=== PATIENT | female | born 1985 | race Caucasian/White ===

== ENCOUNTER 2016-04-04 04:23 | Emergency (ER) | payer OTHER ==
[~2016-04-04] VITALS: Ht 165.1 cm; Wt 69.9 kg
[~2016-04-04 04:23] MED LIST: CIPR-9 PO
[2016-04-04 04:36] VITALS: BP 132/66; PULSE 75; RESP 16; TEMP 97.7; O2SAT 98
--- NOTE | 2016-04-04 05:19 | RADHPO ---
EXAM DATE/TIME: 04/04/2016 04:53 [place] COMPARISON: No previous studies available for comparison. INDICATIONS : Cough and congestion. MEDICAL HISTORY : None. SURGICAL HISTORY : None. ENCOUNTER: Initial ACUITY: 1 month PAIN SCORE: 0/10 LOCATION: Bilateral chest FINDINGS: PA and lateral views of the chest demonstrate the lungs to be symmetrically aerated without evidence of mass, infiltrate or effusion. The cardiomediastinal contours are unremarkable. Osseous structure s are intact. CONCLUSION: 1. No acute cardiopulmonary disease. Henrry Julien MD on April 04, 2016 at 5:18 Board Certified Radiologist. This report was verified electronically.
[2016-04-04] MEDS ORDERED: ZITH500T PO (06:10)
[2016-04-04] MEDS ORDERED: PRED50 PO (06:10)
--- NOTE | 2016-04-04 06:11 | PD ---
HPI Chief Complaint: ENT Complaint Time Seen by Provider: 05:47 Travel History International Travel<30 days: No Contact w/Intl Traveler<30days: No Traveled to known affect area: No History of Present Illness HPI The patient is a 30-year-old female that complains of a cough productive of clear/white mucus for 4 weeks. She also complains of a sore throat for 3 days. She smokes one fourth pack a day. She denies any fever or history of asthma. PFSH Past Medical History Medical History: Denies Significant Hx Diminished Hearing: No ?: Not LMP: 04/01/16 : 1 Para: 1 Miscarriage: 0 : 0 Past Surgical History Section: Yes (06/26/13) Social History Alcohol Use: Yes (rarely) Tobacco Use: Yes (02/21 ppd) Substance Use: No Allergies-Medications (Allergen,Severity, Reaction): Coded Allergies: Vancomycin (Verified Allergy, Severe, STOP BREATHING, 04/04/16) Clindamycin (Verified Allergy, Intermediate, 04/04/16) *MDRO Multi-Drug Resistant Organism (Verified Adverse Reaction, Unknown, ) MRSA (arm)-08/19/15 Reported Meds & Prescriptions Reported Meds & Active Scripts Active Zithromax (Azithromycin) 500 Mg Tab 500 Mg PO DAILY 5 Days Prednisone 50 Mg Tab 50 Mg PO BID Cipro (Ciprofloxacin HCl) 500 Mg Tab 500 Mg PO BID Review of Systems Except as stated in HPI: all other systems reviewed are Neg Physical Exam Narrative GENERAL: Well-nourished, well-developed patient in no respiratory distress. Her vital signs are normal. SKIN: Warm and dry. HEAD: Normocephalic. EYES: No scleral icterus. No injection or drainage. NECK: Supple, trachea midline. No JVD or lymphadenopathy. CARDIOVASCULAR: Regular rate and rhythm without murmurs, gallops, or rubs. RESPIRATORY: Breath sounds equal bilaterally. No accessory muscle use. Lungs show a few very widely scattered wheezes but at the right base there are some rhonchi along with the wheezes. GASTROINTESTINAL: Abdomen soft, non-tender, nondistended. MUSCULOSKELETAL: No cyanosis, or edema. BACK: Nontender without obvious deformity. No CVA tenderness. ENT: The tympanic membranes are clear and the throat shows only minimal erythema. There is no exudate or abscess present in the throat. No sinus tenderness is present. Data Data Last Documented VS Vital Signs Date Time Temp Pulse Resp B/P Pulse Ox O2 Delivery O2 Flow Rate FiO2 04/04/16 04:36 97.7 75 16 132/66 98 Orders Group A Rapid Strep Screen (04/04/16 04:48) Chest, Pa & Lat (04/04/16 ) Strep Culture (Group A) (04/04/16 04:50) Prednisone (Deltasone) (04/04/16 06:15) Azithromycin (Zithromax) (04/04/16 06:15) MDM Medical Decision Making Medical Screen Exam Complete: Yes Emergency Medical Condition: Yes Medical Record Reviewed: Yes Interpretation(s) The chest x-ray shows no acute cardiopulmonary disease. The strep screen is negative for group A strep antigen. Differential Diagnosis COPD with acute exacerbation, pneumonia, bronchitis, viral syndrome, strep pharyngitis, viral pharyngitis Narrative Course The patient has bronchitis. It is now going on for 4 weeks. Plan: She needs to discontinue smoking and is given a course of Zithromax. She should follow- up with a primary care physician. She should also increase her liquid intake. Diagnosis Primary Impression: Bronchitis with bronchospasm Additional Instructions: The prednisone is taken one tablet twice daily for 4 days followed by one tablet once daily for 4 days. The Zithromax is one tablet daily for 5 days. Follow-up with a primary care physician next week. Med/Other Pt SpecificInfo: Prescription(s) given Scripts Azithromycin (Zithromax)500 Mg Oab528 Mg PO DAILY 5 Days Ref 0 Prov:Edgar Dumont MD 04/04/16 Prednisone 50 Mg Tab50 Mg PO BID #12 TAB Ref 0 Prov:Edgar Dumont MD 04/04/16 Disposition: 01 DISCHARGE HOME Condition: Stable Edgar Dumont MD Apr 04, 2016 06:11
[2016-04-04] MEDS ORDERED: predniSONE 20 MG TAB PO ONE (06:15)
[2016-04-04] MEDS ORDERED: AZITHROMYCIN 250 MG TAB PO ONE (06:15)
== END 2016-04-04 06:39 | disposition home or self-care (01) ==
LOC: PHEFT 04:23
DX: J40 Bronchitis, not specified as acute or chronic (principal); J98.01 Acute bronchospasm; F17.210 Nicotine dependence, cigarettes, uncomplicated
CPT/HCPCS: 71020; 87081; 87880; 99283; J7512

== ENCOUNTER 2016-05-10 09:09 | Emergency (ER) | payer OTHER ==
[~2016-05-10] VITALS: Ht 167.6 cm; Wt 69.0 kg
[~2016-05-10 09:09] MED LIST changes: +PRED50 PO; +ZITH500T PO
[2016-05-10 09:15] VITALS: BP 124/97; PULSE 120; RESP 16; TEMP 99; O2SAT 100
--- NOTE | 2016-05-10 09:27 | PD ---
HPI Chief Complaint: cough/yeast infection Time Seen by Provider: 09:20 Travel History International Travel<30 days: No Contact w/Intl Traveler<30days: No Traveled to known affect area: No History of Present Illness HPI 30-year-old female here for evaluation of possible vaginal yeast infection as well as a cough. Patient reports whitish vaginal discharge with vaginal itching 2 days. She has been trying to use Monistat without relief of symptoms. She is sexually active with her boyfriend. No vaginal bleeding. She is having some dysuria that started today. Patient also reports having a cough for about the last 4 months. She was on a Z-Sotero about a month ago. She smokes about a pack of cigarettes daily. Cough is productive of greenish/ yellowish sputum. No hemoptysis. No fevers. No abdominal pains. LMP was about a week and a half ago. PFSH Past Medical History Diminished Hearing: No : 1 Para: 1 Miscarriage: 0 : 0 Past Surgical History Section: Yes (06/26/13) Social History Alcohol Use: Yes (rarely) Tobacco Use: Yes (02/21 ppd) Substance Use: No Allergies-Medications (Allergen,Severity, Reaction): Coded Allergies: Vancomycin (Verified Allergy, Severe, STOP BREATHING, 04/04/16) Clindamycin (Verified Allergy, Intermediate, 04/04/16) *MDRO Multi-Drug Resistant Organism (Verified Adverse Reaction, Unknown, ) MRSA (arm)-08/19/15 Reported Meds & Prescriptions Reported Meds & Active Scripts Active Zithromax (Azithromycin) 500 Mg Tab 500 Mg PO DAILY 5 Days Prednisone 50 Mg Tab 50 Mg PO BID Cipro (Ciprofloxacin HCl) 500 Mg Tab 500 Mg PO BID Review of Systems Except as stated in HPI: all other systems reviewed are Neg Physical Exam Narrative GENERAL: Well-developed, well-nourished, comfortable, no acute distress. SKIN: Warm and dry. HEAD: Atraumatic. Normocephalic. EYES: Pupils equal and round. No scleral icterus. No injection or drainage. ENT: Mucous membranes pink and moist. CARDIOVASCULAR: Regular rate and rhythm. RESPIRATORY: No accessory muscle use. Clear to auscultation. Breath sounds equal bilaterally. GASTROINTESTINAL: Abdomen soft, non-tender, nondistended. BULB GROWER: Exam performed in the presence of a female nurse. External genitalia with mild erythema/irritation, no vesicular lesions. Moderate amount of white yellowish/[id number] vaginal discharge in vaginal vault. Normal cervix. No CMT. No adnexal masses or tenderness. MUSCULOSKELETAL: No obvious deformities. No clubbing. No cyanosis. No edema. NEUROLOGICAL: Awake and alert. No obvious cranial nerve deficits. Motor grossly within normal limits. Normal speech. PSYCHIATRIC: Appropriate mood and affect; insight and judgment normal. Data Data Last Documented VS Vital Signs Date Time Temp Pulse Resp B/P Pulse Ox O2 Delivery O2 Flow Rate FiO2 05/10/16 09:15 99.0 120 16 124/97 100 Orders Gc And Chlamydia Pcr (05/10/16 09:25) Wet Prep Profile (05/10/16 09:25) Urinalysis - C+S If Indicated (05/10/16 09:25) Ed Urine Pregnancytest Poc (05/10/16 09:25) Labs Laboratory Tests Test 05/10/16 05/10/16 09:36 09:44 Urine Collection Type CLEAN CATCH Urine Color YELLOW Urine Turbidity SLIGHTY CLOUDY Urine pH 7.0 Urine Specific [place] 1.015 Urine Protein NEG mg/dL Urine Glucose (UA) NEG mg/dL Urine Ketones NEG mg/dL Urine Occult Blood NEG Urine Nitrite NEG Urine Bilirubin NEG Urine Leukocyte Esterase TRACE Urine WBC 0-2 /hpf Urine Squamous Epithelial 0-5 /hpf Cells Urine Amorphous Sediment FEW Microscopic Urinalysis Comment CULT NOT INDICATED Clue Cells (Wet Prep) NONE SEEN Vaginal Trichomonas (Wet Prep) NONE SEEN Vaginal Yeast (Wet Prep) NONE SEEN MDM Medical Decision Making Medical Screen Exam Complete: Yes Emergency Medical Condition: Yes Medical Record Reviewed: Yes Differential Diagnosis Bronchitis, pneumonia, vulvovaginal candidiasis, PID, gonorrhea, chlamydia, UTI , cystitis Narrative Course Vital signs reviewed. Initial heart rate was 120 which improved to 83 without any intervention. Wet prep is negative for yeast, negative for clue cells, negative for Trichomonas. UA is not suggestive of UTI. Urine test is negative. Physical exam is not consistent with PID. Even though her wet prep is negative for yeast, her physical exam is consistent with yeast infection. The patient has been applying Monistat. I will give her a dose of Diflucan here in the emergency department as well as a prescription for another dose in 72 hours. She will be started on Levaquin for her persistent cough/bronchitis. She is stable for discharge home with outpatient follow-up with an HEATER MECHANIC doctor this week. She was informed on when to return to the emergency department pitcher verbalizes understanding and agreement with plan. Diagnosis Primary Impression: Vulvovaginal candidiasis Additional Impression: Bronchitis Referrals: Primary Care Physician 3 days Additional Instructions: Follow-up with a primary care physician this week. Follow-up with an HEATER MECHANIC doctor this week. Return to the emergency department for worsening symptoms or any other concerns. Scripts Fluconazole (Diflucan)150 Mg Qbw580 Mg PO ONCE #1 TAB Ref 0 Prov:Chase Caraballo MD 05/10/16 Levofloxacin (Levaquin)500 Mg Joi640 Mg PO DAILY 7 Days Ref 0 Prov:Chase Caraballo MD 05/10/16 Disposition: 01 DISCHARGE HOME Condition: Stable Chase Caraballo MD May 10, 2016 09:27
[2016-05-10 09:43] LABS: BLOOD, URINE NEG (NEG); GLUCOSE,URINE NEG (NEG); KETONE, URINE NEG (NEG); NITRITE,URINE NEG (NEG)
[2016-05-10 09:44] LABS: METHOD OF COLLECTION CLEAN CATCH; URINE COLOR YELLOW (YELLW/STRAW)
[2016-05-10 09:48] LABS: COMMENT (UR) CULT NOT INDICATED; CULTURE IF INDICATED CULT NOT INDICATED; SQUAMOUS EPITHELIAL CELL URINE 0-5 /hpf (0-5); WBC, URINE 0-2 /hpf (0-5)
[2016-05-10 09:57] VITALS: O2SAT 83
[2016-05-10] MEDS ORDERED: LEVA500T PO (09:59)
[2016-05-10] MEDS ORDERED: DIFL150T PO (09:59)
[2016-05-10] MEDS ORDERED: FLUCONAZOLE 100 MG TAB PO ONE (10:00)
[2016-05-10 15:05] LABS: CHLAMYDIA PCR NOT DETECTED (NOT DETECT); NEISSERIA PCR NOT DETECTED (NOT DETECT)
== END 2016-05-10 10:16 | disposition home or self-care (01) ==
LOC: PHED 09:09
DX: B37.3 Candidiasis of vulva and vagina (principal); R05 Cough; J40 Bronchitis, not specified as acute or chronic; F17.210 Nicotine dependence, cigarettes, uncomplicated
CPT/HCPCS: 81001; 84703; 87210; 87491; 87591; 99283

== ENCOUNTER 2016-07-02 05:49 | Emergency (ER) | payer OTHER ==
[~2016-07-02] VITALS: Ht 167.6 cm; Wt 66.9 kg
[~2016-07-02 05:49] MED LIST changes: -CIPR-9 PO; +DIFL150T PO; +LEVA500T PO; -PRED50 PO; -ZITH500T PO
[2016-07-02 05:56] VITALS: BP 108/68; PULSE 77; RESP 16; TEMP 98; O2SAT 99
[2016-07-02] MEDS ORDERED: NORG0.253 PO (06:21)
[2016-07-02 06:29] LABS: GLUCOSE,URINE NEG (NEG); KETONE, URINE NEG (NEG); NITRITE,URINE NEG (NEG)
[2016-07-02] MEDS ORDERED: NITROFURANTOIN MONOHYD MACROCR 100 MG CAP PO ONE (06:30)
[2016-07-02] MEDS ORDERED: MACR100C2 PO (06:30)
[2016-07-02] MEDS ORDERED: PROM25TA5 PO (06:30)
--- NOTE | 2016-07-02 06:35 | PD ---
HPI Chief Complaint: Complaint Time Seen by Provider: 06:00 Travel History International Travel<30 days: No Contact w/Intl Traveler<30days: No Traveled to known affect area: No History of Present Illness HPI The patient is a 30-year-old female that complains of dysuria, frequency and urgency for 3 days. She denies any fever but does have some nausea. She denies any vomiting. She states there is no possibility of . She denies any flank pain. PFSH Past Medical History Diminished Hearing: No ?: Not LMP: 2 WEEKS AGO : 1 Para: 1 Miscarriage: 0 : 0 Past Surgical History Section: Yes (06/26/13) Social History Alcohol Use: Yes (rarely) Tobacco Use: Yes (02/21 ppd) Substance Use: No Allergies-Medications (Allergen,Severity, Reaction): Coded Allergies: Vancomycin (Verified Allergy, Severe, STOP BREATHING, 07/02/16) Clindamycin (Verified Allergy, Intermediate, 07/02/16) *MDRO Multi-Drug Resistant Organism (Verified Adverse Reaction, Unknown, ) MRSA (arm)-08/19/15 Reported Meds & Prescriptions Reported Meds & Active Scripts Active Reported Estarylla (Norgestimate-Ethinyl Estradiol) 0.25-35 Mg-Mcg Tab 1 Tab PO DAILY Review of Systems Except as stated in HPI: all other systems reviewed are Neg Physical Exam Narrative GENERAL: The patient is alert, oriented 3 and slight apparent distress with her suprapubic discomfort. Her vital signs are normal. SKIN: Focused skin assessment warm/dry. HEAD: Atraumatic. Normocephalic. EYES: Pupils equal and round. No scleral icterus. No injection or drainage. ENT: No nasal bleeding or discharge. Mucous membranes pink and moist. NECK: Trachea midline. No JVD. CARDIOVASCULAR: Regular rate and rhythm. No murmur appreciated. RESPIRATORY: No accessory muscle use. Clear to auscultation. Breath sounds equal bilaterally. GASTROINTESTINAL: Abdomen soft, non-tender, nondistended. Hepatic and splenic margins not palpable. MUSCULOSKELETAL: No obvious deformities. No clubbing. No cyanosis. No edema. NEUROLOGICAL: Awake and alert. No obvious cranial nerve deficits. Motor grossly within normal limits. Normal speech. PSYCHIATRIC: Appropriate mood and affect; insight and judgment normal. Data Data Last Documented VS Vital Signs Date Time Temp Pulse Resp B/P Pulse Ox O2 Delivery O2 Flow Rate FiO2 07/02/16 05:56 98.0 77 16 108/68 99 Room Air Orders Urinalysis - C+S If Indicated (07/02/16 06:00) Ed Urine Pregnancytest Poc (07/02/16 06:13) Nitrofurantoin Monohyd Macrocr (Macrobid (07/02/16 06:30) MDM Medical Decision Making Medical Screen Exam Complete: Yes Emergency Medical Condition: Yes Medical Record Reviewed: Yes Differential Diagnosis Cystitis, pyelonephritis, herpes genitalis-unlikely Narrative Course The patient appears to have cystitis. She is given Macrobid for 10 days. The fact that she has some nausea indicates she should increase her liquid intake and establish a good urine flow through her kidneys to avoid a pyelonephritis. Diagnosis Primary Impression: Cystitis Additional Instructions: Increase your liquid intake to establish a good urine flow through your kidneys. In this way you may avoid the infection spreading to your kidneys and making very sick. Follow-up this week with your primary care physician. Med/Other Pt SpecificInfo: Prescription(s) given Scripts Nitrofurantoin Monohydrate Macrocrystals (Macrobid)100 Mg Bfw490 Mg PO BID 10 Days Ref 0 Prov:Edgar Dumont MD 07/02/16 Promethazine (Phenergan)25 Mg Tab25 Mg PO Q6H PRN (Nausea/Vomiting) #20 TAB Ref 0 Prov:Edgar Dumont MD 07/02/16 Disposition: 01 DISCHARGE HOME Condition: Stable Edgar Dumont MD July 02, 2016 06:35
[2016-07-02 06:45] LABS: BLOOD, URINE MOD (NEG)
[2016-07-02 06:49] LABS: URINE COLOR YELLOW (YELLW/STRAW)
[2016-07-02 06:51] LABS: MUCUS URINE OCC /lpf (OCC); WBC, URINE INNUM /hpf (0-5)
[2016-07-02 06:52] LABS: SQUAMOUS EPITHELIAL CELL URINE 0-5 /hpf (0-5)
[2016-07-02 06:55] LABS: COMMENT (UR) CULTURE INDICATED; CULTURE IF INDICATED CULTURE INDICATED
== END 2016-07-02 06:41 | disposition home or self-care (01) ==
LOC: PHED 05:49
DX: N30.90 Cystitis, unspecified without hematuria (principal); R11.0 Nausea; F17.200 Nicotine dependence, unspecified, uncomplicated
CPT/HCPCS: 81001; 84703; 87077; 87086; 87186; 99283

== ENCOUNTER 2016-08-14 17:04 | Emergency (ER) | payer OTHER ==
[~2016-08-14] VITALS: Ht 165.1 cm; Wt 70.0 kg
[~2016-08-14 17:04] MED LIST changes: -DIFL150T PO; -LEVA500T PO; +MACR100C2 PO; +NORG0.253 PO; +PROM25TA5 PO
[2016-08-14 17:09] VITALS: BP 132/87; PULSE 84; RESP 16; TEMP 98.6; O2SAT 96
[2016-08-14] MEDS ORDERED: CEPH-460 PO (17:46)
--- NOTE | 2016-08-14 17:48 | PD ---
HPI Chief Complaint: Foreign Body Time Seen by Provider: 17:25 Travel History International Travel<30 days: No Contact w/Intl Traveler<30days: No Traveled to known affect area: No History of Present Illness HPI 30-year-old female [facility] emergency department with chief complaint of fishhook stuck in right index finger. Injury occurred prior to arrival. Patient reports pain at the site. Aggravated by movement of the finger movement of the fishing lower. Severity 8 out of 10. She denies numbness or tingling extremity. Tetanus status up-to-date. [facility] Past Medical History Medical History: Denies Significant Hx Diminished Hearing: No Tetanus Vaccination: < 5 Years Influenza Vaccination: No ?: Not LMP: "4 weeks ago tomorrow" : 2 Para: 2 Miscarriage: 0 : 0 Past Surgical History Section: Yes (X's 2) Social History Alcohol Use: Yes (Occ.) Tobacco Use: Yes (1/2 PPD) Substance Use: No Allergies-Medications (Allergen,Severity, Reaction): Coded Allergies: Clindamycin (Verified Allergy, Severe, Respiratory arrest, 08/14/16) Vancomycin (Verified Allergy, Severe, Respiratory arrest, 08/14/16) *MDRO Multi-Drug Resistant Organism (Verified Adverse Reaction, Unknown, ) MRSA (arm)-08/19/15 Reported Meds & Prescriptions Reported Meds & Active Scripts Active No Active Prescriptions or Reported Medications Review of Systems Except as stated in HPI: all other systems reviewed are Neg Physical Exam Narrative GENERAL: Well-nourished, well-developed patient. Crying. SKIN: Focused skin assessment warm/dry. HEAD: Normocephalic. EYES: No scleral icterus. No injection or drainage. NECK: Supple, trachea midline. No JVD or lymphadenopathy. MUSCULOSKELETAL: No cyanosis, or edema. Right hand: [place]et[place] of fishhook embedded in within proximal aspect of right index finger palmar aspect. The digit is neurovascularly intact. Data Data Last Documented VS Vital Signs Date Time Temp Pulse Resp B/P Pulse Ox O2 Delivery O2 Flow Rate FiO2 08/14/16 17:09 98.6 84 16 132/87 96 MDM Medical Decision Making Medical Screen Exam Complete: Yes Emergency Medical Condition: Yes Differential Diagnosis Puncture wound caused by fishhook right index finger, fishhook removal Narrative Course 30-year-old female since emergency Department with fishing lower embedded within the right index finger. The digit is neurovascular intact. Digital block performed. [place] removed with push through method. Patient tolerated procedure well. Patient we put on prophylactic antibiotics instructed to follow -up with her primary care physician. Return precautions discussed. Patient verbalizes understanding Diagnosis Primary Impression: [place] injury to finger Qualified Code: S69.91XA - [place] injury to finger, right, initial encounter Referrals: Primary Care Physician Additional Instructions: Take the antibiotics as prescribed. Watch for signs of infection such as increased pain, redness, swelling, drainage from the site. If he developed the symptoms he needs to return to the emergency department. Take Tylenol or Motrin as needed for pain. Scripts Cephalexin (Keflex)500 Mg [id number] Mg PO Q6H #28 CAP Prov:Azra Lambert 08/14/16 Disposition: 01 DISCHARGE HOME Condition: Stable Azra Lambert Aug 14, 2016 17:48
== END 2016-08-14 17:55 | disposition home or self-care (01) ==
LOC: PHEFT 17:04
DX: S61.240A Puncture wound with foreign body of right index finger without damage to nail, initial encounter (principal); F17.210 Nicotine dependence, cigarettes, uncomplicated; W45.8XXA Other foreign body or object entering through skin, initial encounter; W22.8XXA Striking against or struck by other objects, initial encounter; Y93.9 Activity, unspecified; Y92.9 Unspecified place or not applicable
CPT/HCPCS: 99283

== ENCOUNTER 2016-10-17 03:35 | Emergency (ER) | payer OTHER ==
[~2016-10-17] VITALS: Ht 167.6 cm; Wt 69.6 kg
[~2016-10-17 03:35] MED LIST changes: +CEPH-460 PO; -MACR100C2 PO; -NORG0.253 PO; -PROM25TA5 PO
[2016-10-17 03:36] VITALS: BP 143/69; PULSE 101; RESP 16; TEMP 97.3; O2SAT 98
[2016-10-17] MEDS ORDERED: NORG0.253 PO (03:56)
[2016-10-17] MEDS ORDERED: IBUP800T23 PO (03:56)
[2016-10-17] MEDS ORDERED: DOXY100C PO (04:41)
[2016-10-17] MEDS ORDERED: BACT800T5 PO (04:41)
--- NOTE | 2016-10-17 04:42 | PD ---
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 Both lower labia show friction areas where the skin is broken and both lower labia show evidence of infection. The patient denies any fever. PFSH Past Medical History Medical History: Denies Significant Hx Diminished Hearing: No Tetanus Vaccination: < 5 Years Influenza Vaccination: No ?: Not LMP: 10/14/2016 : 2 Para: 2 Miscarriage: 0 : 0 Past Surgical History Section: Yes (X's 2) Gynecologic Surgery: Yes (2 c-sections) Social History Alcohol Use: Yes (Occ.) Tobacco Use: Yes (5 cigarettes/daily) Substance Use: No Allergies-Medications (Allergen,Severity, Reaction): Coded Allergies: clindamycin (Verified Allergy, Severe, Respiratory arrest, 10/17/16) vancomycin (Verified Allergy, Severe, Respiratory arrest, 10/17/16) *MDRO Multi-Drug Resistant Organism (Verified Adverse Reaction, Unknown, ) MRSA (arm)-08/19/15 Reported Meds & Prescriptions Reported Meds & Active Scripts Active Reported Estarylla (Norgestimate-Ethinyl Estradiol) 0.25-35 Mg-Mcg Tab 1 Tab PO DAILY Ibuprofen 800 Mg Tab 800 Mg PO Q6HR PRN Review of Systems Except as stated in HPI: all other systems reviewed are Neg Physical Exam Narrative GENERAL: Well-nourished, extremely anxious, well-developed patient in slight apparent distress with her bilateral labia pain. The vital signs show heart rate of 101 and blood pressure 143/69. SKIN: Focused skin assessment warm/dry. HEAD: Normocephalic. EYES: No scleral icterus. No injection or drainage. NECK: Supple, trachea midline. No JVD or lymphadenopathy. CARDIOVASCULAR: Regular rate and rhythm without murmurs, gallops, or rubs. RESPIRATORY: Breath sounds equal bilaterally. No accessory muscle use. GASTROINTESTINAL: Abdomen soft, non-tender, nondistended. MUSCULOSKELETAL: No cyanosis, or edema. BACK: Nontender without obvious deformity. No CVA tenderness. GENITOURINARY: Both labia show friction areas where the skin has been disrupted by apparent rubbing. There is induration and tenderness over both labia. No fluctuance is noted. Data Data Last Documented VS Vital Signs Date Time Temp Pulse Resp B/P (MAP) Pulse Ox O2 Delivery O2 Flow Rate FiO2 10/17/16 03:36 97.3 101 16 143/69 (93) 98 MDM Medical Decision Making Medical Screen Exam Complete: Yes Emergency Medical Condition: Yes Medical Record Reviewed: Yes Differential Diagnosis Cellulitis labia, abscess labia Narrative Course The patient apparently has cellulitis of the labia. I did needle aspirate the right labia which was the worst but no pus was recovered. Plan: The patient is given both doxycycline and Bactrim. Both are twice daily for 10 days. She needs to follow-up with a family support coordinator. Procedures Procedure Narrative The right labia was painted with Betadine and, under sterile technique she got a small amount of lidocaine and needle aspiration was done but did not produce any pus and I did not find any abscess. The patient tolerated the procedure well. Diagnosis Primary Impression: Cellulitis of labia majora Additional Instructions: As long as you are on doxycycline, do not have sex. It can affect your control. As we discussed, follow-up with a family support coordinator. No tablets are one tablet twice daily for 10 days and soak in a tub of warm water 3-4 times daily. Wear loose cotton underwear that completely protect you when you walk. Med/Other Pt SpecificInfo: Prescription(s) given Scripts Doxycycline Hyclate (Doxycycline Hyclate) 100 Mg Cap 100 MG PO BID for Infection, #20 CAP 0 Refills Prov: Edgar Dumont MD 10/17/16 Sulfamethoxazole-Trimethoprim (Bactrim DS) 800-160 Mg Tab 1 TAB PO BID for Infection, #20 TAB 0 Refills Prov: Edgar Dumont MD 10/17/16 Disposition: 01 DISCHARGE HOME Condition: Stable Edgar Dumont MD Oct 17, 2016 04:42
[2016-10-17] MEDS ORDERED: SULFAMETHOXAZOLE-TRIMETHOPRIM DS 800-160 MG TAB PO ONE (04:45)
[2016-10-17] MEDS ORDERED: DOXYCYCLINE HYCLATE 100 MG CAP PO ONE (04:45)
[2016-10-17] MEDS ORDERED: PROM25TA10 PO (05:12)
[2016-10-17] MEDS ORDERED: PROCHLORPERAZINE INJ 10 MG/2 ML VIAL IM ONE (05:15)
[2016-10-17] MEDS ORDERED: ONDANSETRON HCL 4 MG/2 ML VIAL IV ONE ×2 (05:30→06:00)
[2016-10-17] MEDS ORDERED: SODIUM CHLOR 0.9% 1000 ML INJ 1,000 ML IV SCH (05:30)
[2016-10-17] MEDS ORDERED: HYDROmorphone HCL PF 1 MG/ML VIAL IVP ONE ×2 (06:00→06:30)
[2016-10-17] MEDS ORDERED: cefTRIAXone INJ 1,000 MG in SODIUM CHLORIDE 0.9% INJ 100 ML IV ONE (06:00)
[2016-10-17 06:04] VITALS: BP 140/69; PULSE 84; RESP 18; O2SAT 98
[2016-10-17 06:43] LABS: AUTOMATED NEUTROPHIL # 12.5 TH/MM3 (1.8-7.7); BASOPHIL # 0.1 TH/MM3 (0-0.2); BASOPHIL % 0.4 % (0.0-2.0); EOSINOPHIL # 0.1 TH/MM3 (0-0.4); EOSINOPHIL % 0.6 % (0.0-4.0); HEMATOCRIT 35.9 % (35.0-46.0); HEMO FLAGS DIFF FINAL; LYMPH % 8.7 % (9.0-44.0); LYMPHOCYTE # 1.2 TH/MM3 (1.0-4.8); MEAN CELL VOLUME 84.3 FL (80.0-100.0); MEAN CORPUSCULAR HEMOGLOBIN 27.7 PG (27.0-34.0); MEAN CORPUSCULAR HGB CONC 32.8 % (32.0-36.0); MONO % 2.8 % (0.0-8.0); NEUT % 87.5 % (16.0-70.0); PLATELET COUNT 176 TH/MM3 (150-450); RED BLOOD COUNT 4.26 MIL/MM3 (4.00-5.30); RED CELL DISTRIBUTION WIDTH 16.2 % (11.6-17.2); WHITE BLOOD COUNT 14.3 TH/MM3 (4.0-11.0)
[2016-10-17] MEDS ORDERED: PERC5TAB12 PO (06:43)
[2016-10-17 07:00] VITALS: BP 111/65; PULSE 95; RESP 16; O2SAT 99
[2016-10-17 07:00] LABS: POTASSIUM 3.8 MEQ/L (3.5-5.1)
[2016-10-17 07:12] VITALS: RESP 16
[2016-10-17 07:25] LABS: BICARBONATE 25.3 MEQ/L (21.0-32.0); CALCIUM-PROTEIN CORRECTED 7.7 MG/DL (8.5-10.1); TOTAL BILIRUBIN ADULT 0.3 MG/DL (0.2-1.0)
== END 2016-10-17 07:35 | disposition home or self-care (01) ==
LOC: PHED 03:35
DX: N76.2 Acute vulvitis (principal); K52.9 Noninfective gastroenteritis and colitis, unspecified
CPT/HCPCS: 56405; 80053; 83690; 85025; 99284; J0696; J1170; J2405; J7030

== ENCOUNTER 2016-10-18 20:22 | Inpatient (IN) | payer OTHER ==
[~2016-10-18] VITALS: Ht 167.6 cm; Wt 70.0 kg
[~2016-10-18 20:22] MED LIST changes: +BACT800T5 PO; -CEPH-460 PO; +DOXY100C PO; +IBUP800T23 PO; +NORG0.253 PO; +PERC5TAB12 PO; +PROM25TA10 PO
[2016-10-18 20:32] VITALS: BP 131/76; PULSE 83; RESP 20; TEMP 98.3
--- NOTE | 2016-10-18 21:02 | PD ---
HPI Chief Complaint: GI Complaint Time Seen by Provider: 20:56 Travel History International Travel<30 days: No Contact w/Intl Traveler<30days: No Traveled to known affect area: No History of Present Illness HPI Please refer to my notes from yesterday when the patient was seen here in the emergency department. The patient is a 31-year-old female that has nausea, vomiting and diarrhea beginning yesterday, before she was given the antibiotics. The patient cannot hold her medications down. She was seen by the food science professor yesterday and a blade incision was done but only a slight amount of pus was recovered and the left labia majora was packed with iodoform. She has Phenergan at home but could not hold the Phenergan down. PFSH Past Medical History Medical History: Denies Significant Hx Diminished Hearing: No ?: Not LMP: on saturday : 2 Para: 2 Miscarriage: 0 : 0 Past Surgical History Section: Yes (X's 2) Gynecologic Surgery: Yes (2 c-sections) Social History Alcohol Use: Yes (Occ.) Tobacco Use: Yes (5 cigarettes/daily) Substance Use: No Allergies-Medications (Allergen,Severity, Reaction): Coded Allergies: clindamycin (Verified Allergy, Severe, Respiratory arrest, 10/18/16) vancomycin (Verified Allergy, Severe, Respiratory arrest, 10/18/16) *MDRO Multi-Drug Resistant Organism (Verified Adverse Reaction, Unknown, ) MRSA (arm)-08/19/15 Reported Meds & Prescriptions Reported Meds & Active Scripts Active Percocet (Oxycodone-Acetaminophen) 5-325 mg Tab 1 Tab PO Q4H PRN Phenergan (Promethazine HCl) 25 Mg Tablet 25 Mg PO Q6H PRN Doxycycline Hyclate 100 Mg Cap 100 Mg PO BID Bactrim DS (Sulfamethoxazole-Trimethoprim) 800-160 Mg Tab 1 Tab PO BID Reported Estarylla (Norgestimate-Ethinyl Estradiol) 0.25-35 Mg-Mcg Tab 1 Tab PO DAILY Review of Systems Except as stated in HPI: all other systems reviewed are Neg Physical Exam Narrative GENERAL: The patient is moderately dehydrated appearing, alert, oriented 3 in moderate apparent distress with her nausea/vomiting. Her vital signs are normal. SKIN: Focused skin assessment warm/dry. HEAD: Atraumatic. Normocephalic. EYES: Pupils equal and round. No scleral icterus. No injection or drainage. ENT: No nasal bleeding or discharge. Mucous membranes pink and moist. NECK: Trachea midline. No JVD. CARDIOVASCULAR: Regular rate and rhythm. No murmur appreciated. RESPIRATORY: No accessory muscle use. Clear to auscultation. Breath sounds equal bilaterally. GASTROINTESTINAL: Abdomen soft, with slight discomfort to direct palpation all 4 quadrants, nondistended. Hepatic and splenic margins not palpable. No guarding or rebound is present. MUSCULOSKELETAL: No obvious deformities. No clubbing. No cyanosis. No edema. NEUROLOGICAL: Awake and alert. No obvious cranial nerve deficits. Motor grossly within normal limits. Normal speech. PSYCHIATRIC: Appropriate mood and affect; insight and judgment normal. Data Data Last Documented VS Vital Signs Date Time Temp Pulse Resp B/P (MAP) Pulse Ox O2 Delivery O2 Flow Rate FiO2 10/18/16 22:11 72 16 99 Room Air 10/18/16 20:32 98.3 131/76 (94) Orders Orders Complete Blood Count With Diff (10/18/16 21:03) Comprehensive Metabolic Panel (10/18/16 21:03) Urinalysis - C+S If Indicated (10/18/16 21:03) Iv Access Insert/Monitor (10/18/16 21:03) Ecg Monitoring (10/18/16 21:03) Oximetry (10/18/16 21:03) Sodium Chloride 0.9% Flush (Ns Flush) (10/18/16 21:15) Electrocardiogram (10/18/16 21:03) Sodium Chlor 0.9% 1000 Ml Inj (Ns 1000 M (10/18/16 21:15) Ondansetron Inj (Zofran Inj) (10/18/16 21:15) Ceftriaxone Inj (Rocephin Inj) (10/18/16 21:15) Labs Laboratory Tests Test 10/18/16 21:08 10/18/16 21:18 White Blood Count 17.7 TH/MM3 Red Blood Count 4.32 MIL/MM3 Hemoglobin 12.6 GM/DL Hematocrit 36.7 % Mean Corpuscular Volume 85.1 FL Mean Corpuscular Hemoglobin 29.1 PG Mean Corpuscular Hemoglobin Concent 34.2 % Red Cell Distribution Width 16.1 % Platelet Count 178 TH/MM3 Mean Platelet Volume 9.7 FL Neutrophils (%) (Auto) 86.7 % Lymphocytes (%) (Auto) 8.5 % Monocytes (%) (Auto) 2.3 % Eosinophils (%) (Auto) 0.1 % Basophils (%) (Auto) 2.4 % Neutrophils # (Auto) 15.4 TH/MM3 Lymphocytes # (Auto) 1.5 TH/MM3 Monocytes # (Auto) 0.4 TH/MM3 Eosinophils # (Auto) 0.0 TH/MM3 Basophils # (Auto) 0.4 TH/MM3 CBC Comment DIFF FINAL Differential Comment Blood Urea Nitrogen 10 MG/DL Creatinine 0.90 MG/DL Random Glucose 120 MG/DL Total Protein 7.4 GM/DL Albumin 3.4 GM/DL Calcium Level 8.4 MG/DL Alkaline Phosphatase 53 U/L Aspartate Amino Transf (AST/SGOT) 10 U/L Alanine Aminotransferase (ALT/SGPT) 14 U/L Total Bilirubin 0.6 MG/DL Sodium Level 133 MEQ/L Potassium Level 3.8 MEQ/L Chloride Level 102 MEQ/L Carbon Dioxide Level 21.1 MEQ/L Anion Gap 10 MEQ/L Estimat Glomerular Filtration Rate 73 ML/MIN Urine Color YELLOW Urine Turbidity SLIGHT Urine pH 6.5 Urine Specific [place] 1.026 Urine Protein NEG mg/dL Urine Glucose (UA) NEG mg/dL Urine Ketones 80 OR GREATER mg/dL Urine Occult Blood TRACE Urine Nitrite NEG Urine Bilirubin NEG Urine Leukocyte Esterase NEG Urine WBC 0-2 /hpf Urine Squamous Epithelial Cells 0-5 /hpf Microscopic Urinalysis Comment CULT NOT INDICATED MDM Medical Decision Making Medical Screen Exam Complete: Yes Emergency Medical Condition: Yes Medical Record Reviewed: Yes Interpretation(s) The urine shows urine specific gravity 1.026, 80 or greater ketones but is otherwise normal and culture is not indicated. The complete metabolic profile shows a sodium of 133 with GFR of 73 but is otherwise unremarkable. The CBC shows a white count of 17,700 with 87% neutrophils. Differential Diagnosis Viral gastroenteritis, intractable vomiting, intractable abdominal pain, dehydration, labial cellulitis, labial abscess, medication side effect, dehydration Narrative Course The patient likely has a viral gastroenteritis rather than a medication side effect. Her symptoms began before she started taking the medication. She does have intractable abdominal pain and vomiting. She does have a labial cellulitis , apparently this is not an abscess. The induration on the right labia, the one that is most involved, it is the same as it was yesterday. The CBC shows a leukocytosis of almost 1800 with 87% neutrophils. Part of this elevation may be due to the dehydration. Also indicative of dehydration is the urine specific gravity 1.026 with 80 or greater ketones. The patient will be admitted for hydration, IV antibiotics and IV pain medications and IV antiemetics. Physician Communication Physician Communication I discussed the patient with Dr. Hicks, the patient will be admitted to her. Diagnosis Primary Impression: Intractable abdominal pain Additional Impressions: Intractable vomiting with nausea Cellulitis of labia majora Admitting Information Admitting Physician Requests: Admit Edgar Dumont MD Oct 18, 2016 21:02
[2016-10-18] MEDS ORDERED: ONDANSETRON HCL 4 MG/2 ML VIAL IV ONE ×2 (21:15→22:45)
[2016-10-18] MEDS ORDERED: cefTRIAXone INJ 1,000 MG in SODIUM CHLORIDE 0.9% INJ 100 ML IV ONE (21:15)
[2016-10-18] MEDS ORDERED: SODIUM CHLORIDE 0.9% FLUSH 10 ML FLUSH IV FLUSH PRN ×2 (21:15→22:45)
[2016-10-18] MEDS: SODIUM CHLOR 0.9% 1000 ML INJ 1,000 ML IV SCH ×2 (21:21→22:08)
[2016-10-18 21:26] LABS: AUTOMATED NEUTROPHIL # 15.4 TH/MM3 (1.8-7.7); BASOPHIL # 0.4 TH/MM3 (0-0.2); BASOPHIL % 2.4 % (0.0-2.0); EOSINOPHIL % 0.1 % (0.0-4.0); HEMATOCRIT 36.7 % (35.0-46.0); LYMPH % 8.5 % (9.0-44.0); LYMPHOCYTE # 1.5 TH/MM3 (1.0-4.8); MEAN CELL VOLUME 85.1 FL (80.0-100.0); MEAN CORPUSCULAR HEMOGLOBIN 29.1 PG (27.0-34.0); MEAN CORPUSCULAR HGB CONC 34.2 % (32.0-36.0); MONO % 2.3 % (0.0-8.0); NEUT % 86.7 % (16.0-70.0); PLATELET COUNT 178 TH/MM3 (150-450); RED BLOOD COUNT 4.32 MIL/MM3 (4.00-5.30); RED CELL DISTRIBUTION WIDTH 16.1 % (11.6-17.2); WHITE BLOOD COUNT 17.7 TH/MM3 (4.0-11.0)
[2016-10-18 21:33] LABS: CHLORIDE 102 MEQ/L (98-107); POTASSIUM 3.8 MEQ/L (3.5-5.1); SODIUM (NA) 133 MEQ/L (136-145)
[2016-10-18 21:42] LABS: ALT (GPT) 14 U/L (10-53); ANION GAP 10 MEQ/L (5-15); AST (GOT) 10 U/L (15-37); BICARBONATE 21.1 MEQ/L (21.0-32.0); BLOOD UREA NITROGEN 10 MG/DL (7-18); GLOMERULAR FILTRATION RATE 73 ML/MIN (>89); TOTAL BILIRUBIN ADULT 0.6 MG/DL (0.2-1.0)
[2016-10-18 21:44] LABS: HEMO FLAGS DIFF FINAL
[2016-10-18 21:48] LABS: ALKALINE PHOSPHATASE 53 U/L (45-117)
[2016-10-18 21:55] LABS: BLOOD, URINE TRACE (NEG); GLUCOSE,URINE NEG (NEG); KETONE, URINE 80 OR GREATER mg/dL (NEG); NITRITE,URINE NEG (NEG); PH, URINE 6.5 (5.0-8.5)
[2016-10-18 22:11] VITALS: PULSE 72; RESP 16; O2SAT 99
[2016-10-18 22:16] LABS: COMMENT (UR) CULT NOT INDICATED; CULTURE IF INDICATED CULT NOT INDICATED; SQUAMOUS EPITHELIAL CELL URINE 0-5 /hpf (0-5); URINE COLOR YELLOW (YELLW/STRAW); WBC, URINE 0-2 /hpf (0-5)
[2016-10-18] MEDS ORDERED: SODIUM CHLOR 0.9% 1000 ML INJ 1,000 ML IV SCH (22:40)
[2016-10-18] MEDS ORDERED: PROCHLORPERAZINE 25 MG SUPP RECTAL PRN (22:45)
[2016-10-18] MEDS ORDERED: ONDANSETRON HCL 4 MG/2 ML VIAL IVP PRN (22:45)
[2016-10-18] MEDS ORDERED: NALOXONE HCL 0.4 MG/ML AMP IV PRN (22:45)
[2016-10-18 23:10] VITALS: BP 128/72; PULSE 72; RESP 16; O2SAT 99
[2016-10-18] MEDS ORDERED: oxyCODONE/ACETAMINOPHEN 5 MG/325 MG TAB PO PRN (23:30)
[2016-10-19] MEDS ORDERED: SODIUM CHLORIDE 0.9% FLUSH 10 ML FLUSH IV FLUSH SCH (09:00)
[2016-10-19] MEDS ORDERED: cefTRIAXone INJ 1,000 MG in SODIUM CHLORIDE 0.9% INJ 100 ML IV SCH (09:00)
--- NOTE | 2016-10-20 00:53 | EKG ---
Date Performed: 10/18/2016 Time Performed: 21:16:02 PTAGE: 31 years EKG: Sinus rhythm NORMAL ECG NO PREVIOUS TRACING DOCTOR: Trav Sepulveda Interpretating Date/Time 10/20/2016 00:51:55
== END 2016-10-19 01:32 | disposition left against medical advice (07) | DRG 392 ==
LOC: PHED 20:22 → PHEDA 22:43
PROVIDERS: ADMIT Internal Medicine; ATTEND Internal Medicine
DX: A08.4 Viral intestinal infection, unspecified (principal); E86.0 Dehydration; F17.210 Nicotine dependence, cigarettes, uncomplicated; N76.2 Acute vulvitis
CPT/HCPCS: 80053; 81001; 85025; 93005; 96361; 96365; 96375; J0696; J2405; J7030

== ENCOUNTER 2017-01-07 16:55 | Emergency (ER) | payer SELFPAY ==
[~2017-01-07] VITALS: Ht 167.6 cm; Wt 64.0 kg
[~2017-01-07 16:55] MED LIST changes: -IBUP800T23 PO
[2017-01-07 17:01] VITALS: BP 112/71; PULSE 119; RESP 16; TEMP 98.2; O2SAT 97
[2017-01-07 17:35] VITALS: PULSE 102
--- NOTE | 2017-01-07 18:01 | RADRPT ---
EXAM DATE/TIME: 01/07/2017 17:39 [facility] COMPARISON: No previous studies available for comparison. INDICATIONS : Fell yesterday on tailbone. RADIATION DOSE: 19.23 CTDIvol (mGy) MEDICAL HISTORY : None SURGICAL HISTORY : None. ENCOUNTER: Initial ACUITY: 2 days PAIN SCALE: 8/10 LOCATION: spine TECHNIQUE: Volumetric scanning of the lumbar spine was performed. Multiplanar reconstructions in the sagittal, coronal and oblique axial planes were performed. Using automated exposure control and adjustment of the mA and/or kV according to patient size, radiation dose was kept as low as reasonably achievable t o obtain optimal diagnostic quality images. DICOM format image data is available electronically for review and comparison. FINDINGS: VERTEBRAE: Normal vertebral body height. There are bilateral pars defects at L5. ALIGNMENT: There is 2 mm of anterolisthesis of L5 on S1. Mild levoscoliosis. T12-L1: The thecal sac has a normal diameter. No evidence of disc bulge or protrusion. The neural foramina are patent bilaterally. L1-L2: The thecal sac has a normal diameter. No evidence of disc bulge or protrusion. The neural foramina are patent bilaterally. L2-L3: The thecal sac has a normal diameter. No evidence of disc bulge or protrusion. The neural foramina are patent bilaterally. L3-L4: The thecal sac has a normal diameter. No evidence of disc bulge or protrusion. The neural foramina are patent bilaterally. L4-L5: The thecal sac has a normal diameter. No evidence of disc bulge or protrusion. The neural foramina are patent bilaterally. L5-S1: The thecal sac has a normal diameter. No evidence of disc bulge or protrusion. The neural foramina are patent bilaterally. CONCLUSION: 1. Mild levoscoliosis. No acute lumbar spine abnormalities identified. Additionally, no significant d isc herniation or canal stenosis is seen. 2. There are bilateral pars defects of L5 with minimal associated anterolisthesis. Brian Grider MD on January 07, 2017 at 17:57 Board Certified Radiologist. This report was verified electronically.
[2017-01-07] MEDS ORDERED: KETOROLAC TROMETHAMINE 60 MG/2 ML (IM) VIAL IM ONE (18:30)
[2017-01-07] MEDS ORDERED: ORPHENADRINE INJ 60 MG/2 ML AMP IM ONE (18:30)
[2017-01-07] MEDS ORDERED: NAPR500T2 PO (18:37)
[2017-01-07] MEDS ORDERED: ROBA500T PO (18:37)
--- NOTE | 2017-01-07 18:46 | PD ---
HPI . Fall Chief Complaint: Injury Time Seen by Provider: 17:10 Travel History International Travel<30 days: No Contact w/Intl Traveler<30days: No Traveled to known affect area: No History of Present Illness HPI 31-year-old female presents emergency department for evaluation of lumbosacral pain after a fall last night. Patient was running down the stairs and her leg slipped and she landed on her buttocks and slid down multiple stairs subsequently. She denies any other pain except for the lumbar sacral region. Patient states the pain radiates down her bilateral legs intermittently. Patient denies any incontinence of urine or stool. Patient denies any fever or chills. Patient has no major medical history and doesn't take any daily medication. PFSH Past Medical History Diminished Hearing: No Tetanus Vaccination: < 5 Years Influenza Vaccination: No ?: Unknown LMP: now : 2 Para: 2 Miscarriage: 0 : 0 Past Surgical History Section: Yes (X's 2) Gynecologic Surgery: Yes (2 c-sections) Social History Alcohol Use: Yes (Occ.) Tobacco Use: Yes (5 cigarettes/daily) Substance Use: No Allergies-Medications (Allergen,Severity, Reaction): Coded Allergies: clindamycin (Verified Allergy, Severe, Respiratory arrest, 01/07/17) vancomycin (Verified Allergy, Severe, Respiratory arrest, 01/07/17) *MDRO Multi-Drug Resistant Organism (Verified Adverse Reaction, Unknown, 01/07/17) MRSA (arm)-08/19/15 Reported Meds & Prescriptions Reported Meds & Active Scripts Active Naproxen 500 Mg Tab 500 Mg PO BID Robaxin (Methocarbamol) 500 Mg Tab 1,000 Mg PO TID Review of Systems Except as stated in HPI: all other systems reviewed are Neg Physical Exam Narrative GENERAL: Well-nourished, well-developed 31-year-old female patient in no acute distress. Nontoxic appearing. SKIN: Focused skin assessment warm/dry. HEAD: Normocephalic. Atraumatic. EYES: No scleral icterus. No injection or drainage. NECK: Supple, trachea midline. No JVD or lymphadenopathy. CARDIOVASCULAR: Regular rate and rhythm without murmurs, gallops, or rubs. RESPIRATORY: Breath sounds equal bilaterally. No accessory muscle use. GASTROINTESTINAL: Abdomen soft, non-tender, nondistended. MUSCULOSKELETAL: Full range of motion noted to bilateral lower extremities. No ecchymosis, erythema, cyanosis, or edema. BACK: Lumbosacral midline tenderness. No obvious deformity, ecchymosis, erythema, cyanosis or edema. No CVA tenderness. Data Data Last Documented VS Vital Signs Date Time Temp Pulse Resp B/P (MAP) Pulse Ox O2 Delivery O2 Flow Rate FiO2 01/07/17 17:35 102 01/07/17 17:01 98.2 16 112/71 (85) [address] Lumb Spine W/O Contrast (01/07/17 17:16) Ketorolac Inj (Toradol Inj) (01/07/17 18:30) Orphenadrine Inj (Norflex Inj) (01/07/17 18:30) Ed Discharge Order (01/07/17 18:46) MDM Medical Decision Making Medical Screen Exam Complete: Yes Emergency Medical Condition: Yes Differential Diagnosis Differential diagnoses include but not limited to contusion, sprain, fracture Narrative Course 31-year-old female presents emergency department for evaluation of lumbar sacral pain after falling down steps yesterday. Patient states the pain radiates down bilateral legs intermittently. Patient denies any incontinence of urine or stool. Patient denies any fever or chills. Patient has any chest pain, shortness breath. CT of the lumbar spine ordered and pending. CT shows no acute lumbar spinal abnormalities. Patient was given an IM injection of Toradol and Norflex and discharged home with prescription for Robaxin and naproxen. Patient instructed to return the emergency department with any worsening conditions but otherwise follow up with primary care. Last Impressions Lumbar Spine CT 01/07/17 1716 Signed Impressions: Service Date/Time: Saturday, January 07, 2017 17:39 - CONCLUSION: 1. Mild levoscoliosis. No acute lumbar spine abnormalities identified. Additionally, no significant disc herniation or canal stenosis is seen. 2. There are bilateral pars defects of L5 with minimal associated anterolisthesis. Brian Grider MD Diagnosis Primary Impression: Back pain Qualified Codes: M54.42 - Lumbago with sciatica, left side; M54.41 - Lumbago with sciatica, right side Referrals: Primary Care Physician Patient Instructions: Acute Low Back Pain (ED), General Instructions, Sciatica (ED) Med/Other Pt SpecificInfo: Prescription(s) given Scripts Naproxen (Naproxen) 500 Mg Tab 500 MG PO BID, #14 TAB 0 Refills Prov: Shaniqua Beach 01/07/17 Methocarbamol (Robaxin) 500 Mg Tab 1000 MG PO TID for Muscle Spasm, #21 TAB 0 Refills Prov: Shaniqua Beach 01/07/17 Disposition: 01 DISCHARGE HOME Condition: Stable Shaniqua Beach Jan 07, 2017 18:46
== END 2017-01-07 19:03 | disposition home or self-care (01) ==
LOC: PHEFT 16:55
DX: M54.41 Lumbago with sciatica, right side (principal); M54.42 Lumbago with sciatica, left side
CPT/HCPCS: 72131; 96372; 99285; J1885; J2360